=== PATIENT | female | born 1975 | race Hispanic/Latino ===

== ENCOUNTER 2017-11-29 12:18 | Emergency (ER) | payer OTHER ==
[2017-11-29 12:35] VITALS: TEMP 98.6
--- NOTE | 2017-11-29 14:38 | C.PDOC ---
History Of Present Illness 42 year old female with history of low blood pressure and Hypothyroidism presents to ED for evaluation after she passed out yesterday in hotel room. Patient is part of flight crew from [place], and reports she passed out last night and woke up this morning laying flat on right side of face bathroom floor. Patient states she believes her blood pressure got low, it has happened in the past and she had not eaten much yesterday. Currently in ED patient complains of right frontal headache, noticed bump to foreheead and bruising to her left thumb. Patient reports she has to go back to [place] tonight and needs medical clearance. LMP 2 weeks ago. Denies any dizziness, chest pain, SOB, nausea, vomiting or visual changes Time Seen by Provider: 11/29/17 14:04 Chief Complaint (Nursing): Syncope History Per: Patient History/Exam Limitations: no limitations Onset/Duration Of Symptoms: Days Current Symptoms Are (Timing): Still Present Activity At Onset Of Symptoms: Standing Past Medical History Reviewed: Historical Data, Nursing Documentation, Vital Signs Vital Signs: Last Vital Signs Temp 98.6 F 11/29/17 12:30 Pulse 78 11/29/17 16:08 Resp 20 11/29/17 16:08 BP 110/70 11/29/17 16:08 Pulse Ox 98 11/29/17 16:08 - Medical History PMH: Hypothyroidism Surgical History: Family History: States: No Known Family Hx - Social History Hx Alcohol Use: No Hx Substance Use: No - Immunization History Hx Tetanus Toxoid Vaccination: No Hx Influenza Vaccination: No Hx Pneumococcal Vaccination: No Review Of Systems Eyes: Negative for: Vision Change ENT: Negative for: Nose Pain Cardiovascular: Negative for: Chest Pain, Palpitations Respiratory: Negative for: Cough, Shortness of Breath Gastrointestinal: Negative for: Nausea, Vomiting, Abdominal Pain, Diarrhea Genitourinary: Negative for: Dysuria Musculoskeletal: Positive for: Neck Pain Skin: Positive for: Bruising. Negative for: Rash Neurological: Positive for: Headache. Negative for: Weakness, Numbness, Dizziness Physical Exam - Physical Exam Appears: Well, Non-toxic, No Acute Distress Skin: Warm, Dry, No Diaphoretic, No Pale, No Rash Head: Atraumatic, Normacephalic, Tenderness (mild to right side forehead), No Swelling, No Abrasion, No Laceration Eye(s): bilateral: Normal Inspection, PERRL, EOMI Nose: Normal, No Epistaxis, No Deformity, No Tenderness Oral Mucosa: Moist Neck: Normal ROM, Supple Chest: Symmetrical, No Tenderness Cardiovascular: Rhythm Regular, No Murmur Respiratory: Normal Breath Sounds, No Rales, No Rhonchi, No Wheezing Gastrointestinal/Abdominal: Soft, No Tenderness, No Guarding, No Rebound Back: Normal Inspection, No Vertebral Tenderness, No Paraspinal Tenderness Extremity: Normal ROM, No Deformity, Swelling (to left distal thumb), Other ( Ecchymosis to distal left thumb fingertip) Neurological/Psych: Oriented x3, Normal Speech Gait: Steady ED Course And Treatment - Laboratory Results Result Diagrams: 11/29/17 14:53 11/29/17 14:53 Lab Interpretation: No Acute Changes O2 Sat by Pulse Oximetry: 100 (RA) Pulse Ox Interpretation: Normal - CT Scan/US CT scan head Other Rad Studies (CT/US): Read By Radiologist, Radiology Report Reviewed CT/US Interpretation: PROCEDURE: CT HEAD WITHOUT CONTRAST. HISTORY: syncope, head injury. COMPARISON: None available. TECHNIQUE: Axial computed tomography images were obtained through the head/brain without intravenous contrast. Radiation dose: Total exam DLP = 776.59 mGy-cm. This CT exam was performed using one or more of the following dose reduction techniques: Automated exposure control, adjustment of the mA and/or kV according to patient size, and/or use of iterative reconstruction technique. FINDINGS: HEMORRHAGE: No intracranial hemorrhage. BRAIN: No mass effect or edema. The jolly-white matter differentiation appears intact. Please note that MRI with diffusion imaging is more sensitive in the detection of acute ischemic event. VENTRICLES : No hydrocephalus. CALVARIUM: Unremarkable. PARANASAL SINUSES: Unremarkable as visualized. No significant inflammatory changes. MASTOID AIR CELLS: Partial opacification of the left mastoid air cells; correlate clinically for mastoiditis. The right mastoid air cells appear clear. OTHER FINDINGS: None. IMPRESSION: No acute intracranial pathology identified. Partial opacification of the left mastoid air cells; correlate clinically for mastoiditis. Medical Decision Making Medical Decision Making: Impression: syncope. Patient requests medical clearance wants to be on flight back home to [facility]. Plan: CT scan head, Xray thumb, labs, EKG Progress: All diagnostics reviewed CT shows partial opacification of the left mastoid air cells; correlate clinically for mastoiditis. no ICH Patient re-evaluated, she denies having any pain to ears or mastoid region. Area is not tender, red or swollen. I explained results and provided copy of reports. I advised she follow up back home in case regarding mastoids. Patient remained afebrile with stable vital signs. She is stable for discharge Disposition Counseled Patient/Family Regarding: Diagnosis, Need For Followup - Disposition Disposition: HOME/ ROUTINE Disposition Time: 15:53 Condition: STABLE Additional Instructions: Copy of your labs and Ct head scan were provided to you Please take Tylenol for any pain you may have It is important that you follow up with your primary doctor Return to hospital if you develop any dizziness, vomiting, vision changes or severe headache Instructions: Contusion (DC), Syncope (Fainting) (DC) Forms: [facility] ([place]), Work Excuse - POA Present On Arrival: Falls Or Trauma - Clinical Impression Clinical Impression: Syncope, Thumb contusion - PA / BUSINESS SUPPORT PROFESSIONAL / Resident Statement MD/DO has reviewed & agrees with the documentation as recorded. - Scribe Statement The provider has reviewed the documentation as recorded by the Kristyibjose luis Villegas All medical record entries made by the Kaleigh were at my direction and personally dictated by me. I have reviewed the chart and agree that the record accurately reflects my personal performance of the history, physical exam, medical decision making, and the department course for this patient. I have also personally directed, reviewed, and agree with the discharge instructions and disposition.
[2017-11-29 14:59] LABS: HEMOGLOBIN 13.5 g/dL (11.0-16.0); MEAN CELL VOLUME 90.2 fL (81.0-99.0); MEAN CORPUSCULAR HGB CONC 34.4 g/dL (33.0-37.0); MEAN PLATELET VOLUME 7.6 fL (7.2-11.7); RBC 4.36 Mil/uL (3.80-5.20); RED CELL DISTRIBUTION WIDTH 12.5 % (11.5-14.5); WHITE BLOOD COUNT 7.6 K/uL (4.8-10.8)
[2017-11-29 15:04] LABS: HCG,QUALITATIVE URINE NEGATIVE (NEGATIVE)
[2017-11-29 15:08] LABS: INR 1.1
[2017-11-29 15:10] LABS: SQUAMOUS EPITHIAL 17 /hpf (0-5); URINE BACTERIA OCC (<OCC); URINE BILIRUBIN NEGATIVE (NEGATIVE); URINE BLOOD NEGATIVE (NEGATIVE); URINE CLARITY Hazy (Clear); URINE COLOR Yellow (YELLOW); URINE GLUCOSE (UA) NORMAL (Normal); URINE LEUKOCYTE ESTERASE NEG Leu/uL (Negative); URINE NITRATE NEGATIVE (NEGATIVE); URINE PROTEIN NEGATIVE (NEGATIVE); URINE UROBILINOGEN NORMAL mg/dL (0.2-1.0)
[2017-11-29 15:11] LABS: ALB/GLOB RATIO 1.1 (1.0-2.1); ALBUMIN 4.3 g/dL (3.5-5.0); ALT/SGPT 44 U/L (9-52); AST/SGOT 24 U/L (14-36); BLOOD UREA NITROGEN 5 mg/dL (7-17); CALCIUM 9.5 mg/dl (8.6-10.4); GFR AFRICAN-AMERICAN > 60; GFR NON-AFRICAN AMERICAN > 60
--- NOTE | 2017-11-29 15:19 | RAD ---
PROCEDURE: Left Thumb radiographs. HISTORY: pain s.p injury COMPARISON: None. TECHNIQUE: AP radiograph of the left hand, as well as spot oblique and lateral images of thumb were obtained. FINDINGS: LEFT THUMB: There is a cortical step-off in the tip of the distal phalanx of the thumb. Remainder of the left hand (as seen on the AP view) grossly unremarkable. JOINTS: Normal. SOFT TISSUES: There is mild soft tissue swelling in the thumb. OTHER FINDINGS: None. IMPRESSION: Suspect acute nondisplaced fracture in the tip of the distal phalanx of the thumb. Mild soft tissue swelling.
--- NOTE | 2017-11-29 15:48 | CT ---
PROCEDURE: CT HEAD WITHOUT CONTRAST. HISTORY: syncope, head injury COMPARISON: None available. TECHNIQUE: Axial computed tomography images were obtained through the head/brain without intravenous contrast. Radiation dose: Total exam DLP = 776.59 mGy-cm. This CT exam was performed using one or more of the following dose reduction techniques: Automated exposure control, adjustment of the mA and/or kV according to patient size, and/or use of iterative reconstruction technique. FINDINGS: HEMORRHAGE: No intracranial hemorrhage. BRAIN: No mass effect or edema. The jolly-white matter differentiation appears intact. Please note that MRI with diffusion imaging is more sensitive in the detection of acute ischemic event. VENTRICLES: No hydrocephalus. CALVARIUM: Unremarkable. PARANASAL SINUSES: Unremarkable as visualized. No significant inflammatory changes. MASTOID AIR CELLS: Partial opacification of the left mastoid air cells; correlate clinically for mastoiditis. The right mastoid air cells appear clear. OTHER FINDINGS: None. IMPRESSION: No acute intracranial pathology identified. Partial opacification of the left mastoid air cells; correlate clinically for mastoiditis.
[2017-11-29 16:08] VITALS: BP 110/70; PULSE 78; RESP 20
[2017-11-29 16:45] VITALS: O2SAT 100
== END 2017-11-29 16:09 | disposition home or self-care (01) ==
LOC: C.ER 12:18
DX: R55 Syncope and collapse (principal); S60.012A Contusion of left thumb without damage to nail, initial encounter; W18.39XA Other fall on same level, initial encounter; Y92.59 Other trade areas as the place of occurrence of the external cause